=== PATIENT | female | born 1960 | race Caucasian/White ===

== ENCOUNTER 2022-10-03 12:16 | Outpatient (CLI) | payer BC | END 2022-10-03 12:17 | disposition home or self-care (01) | LOC: SCSMRI 12:16 | PROVIDERS: ATTEND Neurological Surgery | DX: M43.12 Spondylolisthesis, cervical region (principal); M47.812 Spondylosis without myelopathy or radiculopathy, cervical region; Z98.890 Other specified postprocedural states | CPT/HCPCS: 72141 ==

== ENCOUNTER 2022-11-13 12:43 | Outpatient (CLI) | payer BC ==
[~2022-11-13 12:43] MED LIST: Iopamidol 370 76% 100 ML VIAL ONE
== END 2022-11-13 12:44 | disposition home or self-care (01) ==
LOC: BICCT 12:43
PROVIDERS: ATTEND Internal Medicine Gastroenterology
DX: R10.32 Left lower quadrant pain (principal); R10.33 Periumbilical pain; N20.0 Calculus of kidney; N28.89 Other specified disorders of kidney and ureter
CPT/HCPCS: 74177; 82565; Q9967